=== PATIENT | female | born 1970 | race Caucasian/White ===

== ENCOUNTER 2024-11-29 10:48 | Emergency (ER) | payer OTHER, SELFPAY ==
[2024-11-29 11:09] VITALS: BP 133/74
--- NOTE | 2024-11-29 12:18 | ED.GENMED ---
History of Present Illness
General
Chief Complaint: Rabies
Source: patient
Exam Limitations: none
Time Seen by Provider: 11/29/24 11:47
History of Present Illness
History of Present Illness:
54 year old female presents after waking up to a bat in the house. The bat was obtained and currently be sent for testing however they state that the testing for rabies will take 10 to 15 days. No known direct contact. No concern for potential
rabies exposure.
Phy Exam
Physical Exam
Physical Exam:
General: Well-appearing female no acute respiratory distress
HEENT normocephalic atraumatic
Course
Orders/Labs/Results
Orders:
Orders
11/29/24 12:16
Rabies Immune Globulin/Pf [HyperRAB] 1,054 unit IM NOW STA
Rabies Vaccine (Pcec)/Pf [Rabavert Rabies Vacc W-Diluent] 2.5 unit IM .ONCE ONE
Vital Signs
Initial and Last Documented VS:
Initial Vital Signs
Temp Pulse Resp BP Pulse Ox
98.6 F 75 20 133/74 100
11/29/24 11:09 11/29/24 11:09 11/29/24 11:09 11/29/24 11:09 11/29/24 11:09
Last Documented Vital Signs
Temp Pulse Resp BP Pulse Ox
98.6 F 75 20 133/74 100
11/29/24 11:09 11/29/24 11:09 11/29/24 11:09 11/29/24 11:09 11/29/24 11:09
MDM/Problems Addressed
Differential Diagnosis Includes:
Patient woke up with a bat in the house. Here for rabies vaccination. Explained risks and benefits in the process. She opted to receive the rabies vaccine and immunoglobulin. This was ordered. She will follow-up with the outpatient infusion
center for the remaining vaccines.
*Pulse Oximetry
SaO2: 100
Oxygen Mode of Delivery: Room air
Patient hypoxic: no
*Critical Care Note
Total Time (30-74mins, 75-104mins- exclusive of procedures): Not Applicable
ED Attending Note
-
Portions of this chart may have been created with voice recognition software.� Occasional wrong word or��sound alike� substitutions may have occurred due to the inherent limitations of voice recognition software.
Discharge Plan
Departure
Patient Disposition: Home (Routine Discharge)
Date of Disposition: 11/29/24
Time of Disposition: 12:27
Patient with high blood pressure during this ER visit?: No
Discharge Problem:
Rabies, need for prophylactic vaccination against
Prescriptions:
New
RabAvert (PF) 2.5 unit Suspension For Reconstitution
1 ml IM . DIRECTED Qty: 3 0RF
Rx Instructions:
See Rabies Vaccine Post Exposure Prophylaxis Instruction Sheet for Dosing Instructions
Referrals:
UNKNOWN - PT DOES,NOT KNOW [Family Provider]
Stand Alone Forms: Rabies Vaccine Post Exp Dosing
Interventions
Interventions:
*Risk Screen - Suicide Last Done: 11/29/24 11:09
*Neglect/Abuse Screening Last Done: 11/29/24 11:09
Discharge Date and Time
Print Language: [id number]
[2024-11-29] MEDS: RABAVERT RABIES VACC W-DILUENT 2.5 UNIT IM (13:00)
== END 2024-11-29 13:30 | disposition home or self-care (01) ==
LOC: EMR 10:48
PROVIDERS: EMERGENCY PHYSICIAN Emergency Medicine
DX: Z20.3 Contact with and (suspected) exposure to rabies (principal); Z23 Encounter for immunization
CPT/HCPCS: 99282; 90471; 96372; 90375; 90675